=== PATIENT | female | born 1955 | race African-American/Black ===

== ENCOUNTER 2022-02-15 14:16 | Outpatient (CLI) | payer OTHER, MEDICAID | END 2022-02-15 14:17 | disposition home or self-care (01) | LOC: CSHCT 14:16 | PROVIDERS: ATTEND Surgery | DX: M48.02 Spinal stenosis, cervical region (principal); M54.12 Radiculopathy, cervical region; M43.16 Spondylolisthesis, lumbar region; M40.202 Unspecified kyphosis, cervical region; M50.31 Other cervical disc degeneration, high cervical region; M50.01 Cervical disc disorder with myelopathy, high cervical region; M47.816 Spondylosis without myelopathy or radiculopathy, lumbar region; M43.17 Spondylolisthesis, lumbosacral region | CPT/HCPCS: 72050; 72131; 72141 ==

== ENCOUNTER 2022-09-08 12:22 | Outpatient (CLI) | payer OTHER, MEDICAID | END 2022-09-08 12:23 | disposition home or self-care (01) | LOC: CSHRAD 12:22 | PROVIDERS: ATTEND Student in an Organized Health Care Education/Training Program | DX: Z01.818 Encounter for other preprocedural examination (principal) | CPT/HCPCS: 71046 ==

== ENCOUNTER 2022-09-08 13:03 | Outpatient (CLI) | payer OTHER, MEDICAID | END 2022-09-08 13:04 | disposition home or self-care (01) | LOC: CSHMAMMO 13:03 | PROVIDERS: ATTEND Student in an Organized Health Care Education/Training Program | DX: Z12.31 Encounter for screening mammogram for malignant neoplasm of breast (principal); Z91.89 Other specified personal risk factors, not elsewhere classified; Z90.12 Acquired absence of left breast and nipple; Z80.3 Family history of malignant neoplasm of breast | CPT/HCPCS: 77063; 77067 ==